=== PATIENT | female | born 1985 | race Caucasian/White ===

== ENCOUNTER 2024-05-06 08:41 | Day surgery (SDC) | payer BC, OTHER ==
[~2024-05-06 08:41] MED LIST: Lidocaine 1% 5 ML VIAL ONE; Midazolam 1 MG/ML 2 ML SDV ONE; Propofol 200 MG/20 ML SDV ONE; Sodium Chloride 0.9% 10 ML Syringe FLUSH PRN; Sodium Chloride 0.9% 10 ML Syringe FLUSH SCH; fentaNYL 100 MCG/2 ML SDV ONE
[2024-05-06] MEDS: Lactated Ringers 1,000 ML IV SCH (09:00)
[2024-05-06] MEDS: EPINEPHrine 1 MG/ML SDV ONE (10:20)
[2024-05-06] MEDS: Lidocaine 1% with EPINEPHrine 1:100,000 20 ML MDV ONE (10:20)
[2024-05-06] MEDS: Bupivacaine 0.5% 30 ML SDV ONE (10:20)
[2024-05-06] MEDS ORDERED: Propofol 200 MG/20 ML SDV ONE (10:30)
[2024-05-06 11:34] VITALS: BP 91/66; PULSE 68
== END 2024-05-06 11:32 | disposition home or self-care (01) ==
LOC: JD.SDS 08:41
PROVIDERS: ATTEND Surgery
DX: D17.1 Benign lipomatous neoplasm of skin and subcutaneous tissue of trunk (principal); Z88.5 Allergy status to narcotic agent; Z87.891 Personal history of nicotine dependence
CPT/HCPCS: 21931; 81025; J0171; J0665; J2250; J2704; J3010; J7120; 00300; J3490